=== PATIENT | male | born 1990 | race Caucasian/White ===

== ENCOUNTER 2017-10-11 20:58 | Emergency (ER) | payer OTHER ==
[~2017-10-11] VITALS: Ht 190.5 cm; Wt 92.0 kg
[~2017-10-11 20:58] MED LIST: DOXY100T PO; POLY10O RIGHT EYE; SULF1TAB47 PO; Z.0.NO CURRENT MEDS
[2017-10-11 21:01] VITALS: BP 138/86; PULSE 94; RESP 16; TEMP 99.5; O2SAT 98
--- NOTE | 2017-10-11 21:22 | PD ---
HPI Chief Complaint: Cold / Flu Symptoms Time Seen by Provider: 21:15 Travel History International Travel<30 days: No Contact w/Intl Traveler<30days: No Traveled to known affect area: No History of Present Illness HPI 27-year-old male presents to the emergency department for evaluation of sore throat, fever that started yesterday. Patient states his fever has been up to 101. He reports associated headache. He has no chronic medical problems and takes no medications. Severity is moderate. No exacerbating or alleviating factors. [facility] Past Medical History Medical History: Denies Significant Hx Diminished Hearing: No Past Surgical History Surgical History: No Previous Surgery Social History Alcohol Use: No Tobacco Use: Yes (1 CIGARETTE PER DAY) Substance Use: No Allergies-Medications (Allergen,Severity, Reaction): Coded Allergies: No Known Allergies (Verified Adverse Reaction, Unknown, 10/11/17) Reported Meds & Prescriptions Reported Meds & Active Scripts Active No Active Prescriptions or Reported Medications Review of Systems Except as stated in HPI: all other systems reviewed are Neg Physical Exam Narrative GENERAL: Well-nourished, well-developed male patient, afebrile. SKIN: Focused skin assessment warm/dry. HEAD: Normocephalic. Atraumatic. ENT: Mucosa pink and moist. Bilateral tonsils are 2+ with erythema and exudates or exudates. No uvular edema. No uvular, palatal, or tonsillar deviation. Airway patent. Nasal turbinates appear normal without nasal blood, purulent drainage or septal hematoma. Bilateral tympanic membranes are clear without erythema or perforation. EYES: No scleral icterus. No injection or drainage. NECK: Supple, trachea midline. No JVD or lymphadenopathy. CARDIOVASCULAR: Regular rate and rhythm without murmurs, gallops, or rubs. RESPIRATORY: Breath sounds equal bilaterally. No accessory muscle use. Lungs sounds are clear to auscultation. GASTROINTESTINAL: Abdomen soft, non-tender, nondistended. MUSCULOSKELETAL: No cyanosis, or edema. BACK: Nontender without obvious deformity. No CVA tenderness. Data Data Last Documented VS Vital Signs Date Time Temp Pulse Resp B/P (MAP) Pulse Ox O2 Delivery O2 Flow Rate FiO2 10/11/17 21:01 99.5 94 16 138/86 (103) 98 Room Air Orders Orders Penicillin V Potassium (Veetids) (10/11/17 21:30) [facility] Medical Decision Making Medical Screen Exam Complete: Yes Emergency Medical Condition: Yes Medical Record Reviewed: Yes Differential Diagnosis Strep pharyngitis versus mononucleosis versus peritonsillar abscess versus viral pharyngitis Narrative Course 27-year-old male presents to the emergency department for evaluation of sore throat and fever. Physical exam shows exudative tonsils consistent with strep pharyngitis. Patient is given first dose of Pen-Vee K in the emergency department. He'll be discharged prescription for pen VK. He'll be given a work note. He is to return here for any acute worsening of symptoms. Diagnosis Primary Impression: Exudative pharyngitis Referrals: Primary Care Physician as needed Patient Instructions: General Instructions, Pharyngitis (ED) Departure Forms: Tests/Procedures, Work Release Enter return to work date: Oct 14, 2017 Additional Instructions: Take antibiotic as directed until gone. This is free at [facility]. Warm salt water gargles. Tylenol every 4 hours as needed for fever/pain. Ibuprofen every 6-8 hours as needed for fever/pain. Follow-up with your primary care physician. Return to the emergency department for any acute worsening of symptoms. Med/Other Pt SpecificInfo: Prescription(s) given Scripts Penicillin V Potassium (Penicillin V Potassium) 500 Mg Tab 500 MG PO TID for Infection for 10 Days, TAB 0 Refills Prov: Radha Scott 10/11/17 Disposition: 01 DISCHARGE HOME Condition: Stable Radha Scott Oct 11, 2017 21:22
[2017-10-11] MEDS ORDERED: PENICILLIN V POTASSIUM 500 MG TAB PO ONE (21:30)
[2017-10-11] MEDS ORDERED: PENI500T PO (21:35)
--- NOTE | 2017-10-11 21:36 | PD ---
Physical Exam Date Seen by Provider: Oct 11, 2017 Time Seen by Provider: 21:00 Narrative This patient presents with a sore throat Data Data Last Documented VS Vital Signs Date Time Temp Pulse Resp B/P (MAP) Pulse Ox O2 Delivery O2 Flow Rate FiO2 10/11/17 21:01 99.5 94 16 138/86 (103) 98 Room Air Orders Orders Penicillin V Potassium (Veetids) (10/11/17 21:30) MDM Supervised Visit with MARTHA: Yes Narrative Course I, Dr. Vu, have reviewed the advance practice practitioner's documentation and am in agreement, met with the patient face to face, made the diagnosis, and the medical decision making was done by me. *My assessment and Findings: He has exudative pharyngitis but has no airway compromise. Please see Radha Scott NP's note for laboratory and radiology results, final diagnosis and disposition Scripts Penicillin V Potassium (Penicillin V Potassium) 500 Mg Tab 500 MG PO TID for Infection for 10 Days, TAB 0 Refills Prov: Radha Scott 10/11/17 Jodie Vu MD Oct 11, 2017 21:36
== END 2017-10-11 22:11 | disposition home or self-care (01) ==
LOC: NEPD 20:58
DX: J02.9 Acute pharyngitis, unspecified (principal); R50.9 Fever, unspecified; R51 Headache; F17.210 Nicotine dependence, cigarettes, uncomplicated
CPT/HCPCS: 99283